=== PATIENT | female | born 1935 | race Caucasian/White ===

== ENCOUNTER 2019-03-18 13:11 | Outpatient (REF) | payer MEDICARE, SELFPAY ==
[2019-03-18 21:51] LABS: Anion Gap 13.7 mmol/L (3-11); BUN 19 mg/dL (7-18); CO2 22.3 mmol/L (21.0-32.0); Calcium 9.6 mg/dL (8.5-10.1); Chloride 103 mmol/L (98-107); Estimated GFR 43.12 (mL/min/1.73m2); Glucose 121 mg/dL (70-100); Potassium 4.7 mmol/L (3.5-5.1); Sodium 139 mmol/L (136-145)
== END 2019-03-18 13:31 ==
LOC: NCHCO 13:11
PROVIDERS: PCP Nurse Practitioner Community Health
DX: J44.1 Chronic obstructive pulmonary disease with (acute) exacerbation (principal)
CPT/HCPCS: 80048